=== PATIENT | female | born 1995 | race Caucasian/White ===

== ENCOUNTER 2022-07-01 20:59 | Emergency (ER) | payer MEDICAID ==
[~2022-07-01] VITALS: Ht 152.4 cm; Wt 86.4 kg
[~2022-07-01 20:59] MED LIST: CEFD300C17; FURO20TA4 PO; METO25TA6 PO; OMEP20CA16 PO; PHEN-888 PO; POTA10CA44 PO; WARF-65 PO; atropine 0.1mg/ml 10ml syringe ONE; calcium chloride 100 MG/1 ML inj IV ONE; epiNEPHrine 0.1mg/ml 10ml syringe ONE; naloxone 0.4 mg/ml inj ONE; sodium bicarbonate (8.4%) 1 mEq/ml syringe ONE
[2022-07-01] MEDS ORDERED: dextrose 50%-water 50ml dispensing syringe IV ONE (21:04)
--- NOTE | 2022-07-01 23:31 | NUR ---
2210: coronor contacted: release the body Donor network contacted: [phone]: Roberto Carlos contacted
== END 2022-07-02 02:26 ==
LOC: ER 21:00
DX: I46.9 Cardiac arrest, cause unspecified (principal); J45.909 Unspecified asthma, uncomplicated; F31.9 Bipolar disorder, unspecified; Z88.5 Allergy status to narcotic agent; Z88.8 Allergy status to other drugs, medicaments and biological substances; Z79.899 Other long term (current) drug therapy; Z88.6 Allergy status to analgesic agent; Z79.1 Long term (current) use of non-steroidal anti-inflammatories (NSAID)
CPT/HCPCS: 31500; 92950; 99291; J0171; J0461; J2310; J3490